=== PATIENT | female | born 1995 | race Caucasian/White ===

== ENCOUNTER 2019-01-15 18:53 | Emergency (ER) | payer MEDICAID ==
[~2019-01-15] VITALS: Ht 162.6 cm; Wt 90.7 kg
[2019-01-15] MEDS ORDERED: MORPHINE SULFATE 4 MG/ML SYR/VIAL ONE (19:53)
[2019-01-15] MEDS ORDERED: ONDANSETRON HCL 4 MG/2 ML VIAL ONE (19:53)
[2019-01-15] MEDS ORDERED: HYDROmorphone HCL 2 MG/ML VL IV ONE (22:00)
[2019-01-15] MEDS ORDERED: ETOMIDATE (2MG/ML) 20ML VIAL IV ONE (22:00)
[2019-01-15] MEDS ORDERED: ONDANSETRON HCL 4 MG/2 ML VIAL IV ONE (22:00)
[2019-01-16 00:30] VITALS: BP 130/70
== END 2019-01-16 01:38 | disposition home or self-care (01) ==
LOC: ER 18:53
DX: S52.222A Displaced transverse fracture of shaft of left ulna, initial encounter for closed fracture (principal); S52.322A Displaced transverse fracture of shaft of left radius, initial encounter for closed fracture; W01.0XXA Fall on same level from slipping, tripping and stumbling without subsequent striking against object, initial encounter; Y93.89 Activity, other specified; Y92.090 Kitchen in other non-institutional residence as the place of occurrence of the external cause; Y99.8 Other external cause status
CPT/HCPCS: 25565; 73090; 73110; 96374; 96375; 99285; J1170; J2270; J2405

== ENCOUNTER 2021-07-10 09:53 | Observation (INO) | payer MEDICAID | END 2021-07-10 11:21 | disposition home or self-care (01) | LOC: LDRP 09:53 | PROVIDERS: ADMIT Obstetrics & Gynecology; ATTEND Obstetrics & Gynecology | DX: O36.8120 Decreased fetal movements, second trimester, not applicable or unspecified (principal); Z3A.20 20 weeks gestation of pregnancy; W01.0XXA Fall on same level from slipping, tripping and stumbling without subsequent striking against object, initial encounter; Y93.89 Activity, other specified; Y92.89 Other specified places as the place of occurrence of the external cause; Y99.8 Other external cause status | CPT/HCPCS: 76815; 81002; 94760; G0378 ==

== ENCOUNTER 2021-11-07 08:09 | Observation (INO) | payer MEDICAID ==
[2021-11-25] MEDS ORDERED: PREN-96 PO (15:08)
== END 2021-11-25 15:54 | disposition home or self-care (01) ==
LOC: LDRP 11-25 14:40 → UNDOADMOB 11-25 14:40 → LDRP 11-25 14:51
PROVIDERS: ADMIT Obstetrics & Gynecology Obstetrics; ATTEND Obstetrics & Gynecology Obstetrics
DX: O48.0 Post-term pregnancy (principal); O62.9 Abnormality of forces of labor, unspecified; Z3A.40 40 weeks gestation of pregnancy
CPT/HCPCS: 59025; 81002; 94760; G0378

== ENCOUNTER 2021-11-19 06:17 | Observation (INO) | payer MEDICAID | END 2021-11-19 07:29 | disposition home or self-care (01) | LOC: LDRP 06:17 | PROVIDERS: ADMIT Obstetrics & Gynecology Obstetrics; ATTEND Obstetrics & Gynecology Obstetrics | DX: O26.893 Other specified pregnancy related conditions, third trimester (principal); R10.9 Unspecified abdominal pain; Z3A.39 39 weeks gestation of pregnancy | CPT/HCPCS: 59025; 81002; 94760; G0378 ==

== ENCOUNTER 2021-11-28 13:00 | Observation (INO) | payer MEDICAID ==
[~2021-11-28 13:00] MED LIST: PREN-96 PO
== END 2021-11-28 14:50 | disposition home or self-care (01) ==
LOC: LDRP 13:00 → UNDOADMOB 13:00 → LDRP 13:06
PROVIDERS: ADMIT Obstetrics & Gynecology; ATTEND Obstetrics & Gynecology
DX: O48.0 Post-term pregnancy (principal); Z3A.40 40 weeks gestation of pregnancy
CPT/HCPCS: 59025; 76818; 81002; 94760; G0378

== ENCOUNTER 2021-12-01 17:40 | Inpatient (IN) | payer MEDICAID ==
[~2021-12-01] VITALS: Ht 162.6 cm; Wt 117.0 kg
[2021-12-01] MEDS ORDERED: miSOPROStol 50 MCG per PRE-CUT 1/2 TAB PO PRN (18:30)
[2021-12-01] MEDS ORDERED: BUTORPHANOL TARTRATE 2 MG/1 ML VIAL IV PRN ×2 (18:30)
[2021-12-01] MEDS ORDERED: PHISODERM TOP SOLN 240ML BTL TOP PRN (18:30)
[2021-12-01] MEDS ORDERED: DERMOPLAST 60ML BOTTLE TOP PRN (18:30)
[2021-12-01] MEDS ORDERED: WITCH HAZEL-GLYCERIN PAD TOP PRN (18:30)
[2021-12-01] MEDS ORDERED: LIDOCAINE 2%HCL (LOCAL ANESTH.) INJ 10ml MDV IJ PRN (18:30)
[2021-12-01] MEDS ORDERED: PROMETHAZINE HCL 25 MG/ML 1ML IV PRN (18:30)
[2021-12-01 18:47] LABS: Basophils # (auto) 0 10 ^3/uL (0-0.2); Basophils % (auto) 0.2 % (0.0-2.0); Eosinophils # (auto) 0 10 ^3/uL (0-0.8); Eosinophils % (auto) 0.2 % (0.0-7.0); Hemoglobin 13.9 g/dL (12.2-16.2); Lymphocytes # (auto) 1.4 10 ^3/uL (0.4-5.4); Lymphocytes % (auto) 14.6 % (10.0-50.0); Mean Corpuscular Hemoglobin 30.1 pg (28.0-32.0); Mean Corpuscular Hgb Conc. 33.2 g/dL (32.0-36.0); Mean Corpuscular Volume 90.8 fL (80.0-100.0); Monocytes # (auto) 0.6 10 ^3/uL (0-1.3); Neutrophils # (auto) 7.3 10 ^3/uL (1.6-8.6); Nucleated Red Blood Cells % 0.1 %; Red Blood Cells 4.63 10^6/uL (4.0-5.20); Red Cell Distribution Width 13.3 % (11.8-14.3); White Blood Cell 9.3 10^3/uL (4.4-10.8)
[2021-12-01 18:56] LABS: Urine Bacteria MANY /hpf (None Seen); Urine Blood Negative /uL (Negative); Urine Mucus FEW (None Seen); Urine Specific Gravity 1.033 (1.001-1.035); Urine WBC 5 /hpf (0 - 5)
[2021-12-01 19:06] LABS: INR 0.93 (0.9-1.15)
[2021-12-01 19:09] LABS: Albumin 2.8 g/dL (3.4-5.0); Calcium 8.7 mg/dL (8.5-10.1); Potassium 4.2 mmol/L (3.5-5.1)
[2021-12-01 19:11] LABS: Alcohol, Urine < 3.0 mg/dL (0-10); Amphetamine Screen, Urine NEGATIVE (NEGATIVE); Barbiturate Scree,Urine NEGATIVE (NEGATIVE); Benzodiazephine Screen, Urine NEGATIVE (NEGATIVE); Cannabinoid Screen, Urine NEGATIVE (NEGATIVE); Cocaine Screen, Urine NEGATIVE (NEGATIVE); Opiate Scree,Urine NEGATIVE (NEGATIVE); Phencyclidine Screen, Urine NEGATIVE (NEGATIVE)
[2021-12-01] MEDS: LACTATED RINGER'S 1,000 ML IV SCH ×2 (19:12→22:17)
[2021-12-01 19:14] LABS: BUN/Creatinine Ratio 19.4; Bilirubin, Total 0.5 mg/dL (0.2-1.0); Total Protein 7.2 g/dL (6.4-8.2)
[2021-12-02] MEDS ORDERED: LACT. RINGERS/OXYTOCIN 20UNITS 500 ML IV ONE ×2 (01:15→01:45)
[2021-12-02] MEDS ORDERED: TERBUTALINE SULFATE 1 MG/ML 1ML VIAL SC PRN (01:15)
[2021-12-02] MEDS ORDERED: LACT. RINGERS/OXYTOCIN 20UNITS 1,000 ML IV SCH (01:15)
[2021-12-02] MEDS ORDERED: LACTATED RINGER'S 1,000 ML IV ONE (05:15)
[2021-12-02] MEDS ORDERED: ePHEDrine SULFATE 50 MG/ML AMP IV ONE (05:15)
[2021-12-02] MEDS ORDERED: fentaNYL CITRATE 100 MCG/2 ML VL IV ONE ×2 (05:15→14:15)
[2021-12-02] MEDS ORDERED: LIDOCAINE HCL 2 %PF INJ 10ML AMP IJ ONE ×2 (05:15→23:02)
[2021-12-02] MEDS ORDERED: ROPIVACAINE HCL 200 ML EPI SCH ×2 (05:15→06:30)
[2021-12-02] MEDS ORDERED: NALOXONE HCL 0.4 MG/ML VIAL IV ONE (05:15)
[2021-12-02] MEDS: LACTATED RINGER'S 1,000 ML IV SCH ×2 (07:17→14:56)
[2021-12-02] MEDS ORDERED: LACTATED RINGER'S 500 ML IV SCH (15:45)
[2021-12-02] MEDS ORDERED: fentaNYL CITRATE 100 MCG/2 ML VL ONE (23:02)
[2021-12-03] MEDS ORDERED: OXYTOCIN 10UNIT/ML 1ML VIAL ONE (02:13)
[2021-12-03] MEDS ORDERED: ONDANSETRON ODT 4 MG TAB PO PRN (02:15)
[2021-12-03] MEDS: ACETAMINOPHEN 325 MG TAB PO PRN ×2 (02:44→16:06)
[2021-12-03 06:07] LABS: RPR Non Reactive (Non Reactive)
[2021-12-03] MEDS: IBUPROFEN 800 MG TAB PO SCH ×4 (06:36→18:00)
[2021-12-03] MEDS ORDERED: DOCU100C10 PO (07:12)
[2021-12-03] MEDS ORDERED: IBUP800T26 PO (07:12)
[2021-12-03 07:23] VITALS: BP 99/77
[2021-12-03 11:00] VITALS: BP 96/70
[2021-12-03 15:30] VITALS: BP 104/65
[2021-12-03 19:00] VITALS: BP 108/56
[2021-12-03] MEDS ORDERED: DOCUSATE SOD 100 MG CAP PO SCH (22:00)
[2021-12-03] MEDS: IBUPROFEN 600 MG TAB PO PRN (22:14)
[2021-12-03 23:00] VITALS: BP 127/53
[2021-12-04 07:00] VITALS: BP 105/71
[2021-12-04] MEDS: IBUPROFEN 600 MG TAB PO PRN ×2 (07:20→14:56)
[2021-12-04 11:00] VITALS: BP 106/58
[2021-12-04 15:00] VITALS: BP 103/58
[2021-12-04 19:00] VITALS: BP 110/69
[2021-12-04] MEDS: ACETAMINOPHEN 325 MG TAB PO PRN (19:40)
== END 2021-12-04 21:20 | disposition home or self-care (01) | DRG 560 ==
LOC: LDRP 17:40 → UNDOADMIN 17:40 → LDRP 18:22
PROVIDERS: ADMIT Obstetrics & Gynecology; ATTEND Obstetrics & Gynecology
PROC: 10E0XZZ Delivery of Products of Conception, External Approach (ICD-10-PCS; principal; 2021-12-03)
PROC: 0KQM0ZZ Repair Perineum Muscle, Open Approach (ICD-10-PCS; 2021-12-03)
PROC: 3E0R3BZ Introduction of Anesthetic Agent into Spinal Canal, Percutaneous Approach (ICD-10-PCS; 2021-12-03)
PROC: 00HU33Z Insertion of Infusion Device into Spinal Canal, Percutaneous Approach (ICD-10-PCS; 2021-12-03)
DX: O48.0 Post-term pregnancy (principal); Z37.0 Single live birth; O70.1 Second degree perineal laceration during delivery; O76 Abnormality in fetal heart rate and rhythm complicating labor and delivery; Z3A.40 40 weeks gestation of pregnancy; Z86.16 Personal history of COVID-19; Z20.822 Contact with and (suspected) exposure to COVID-19
CPT/HCPCS: 36415; 59025; 59409; 80053; 80307; 81001; 81002; 85025; 85610; 85730; 86592; 86850; 86900; 86901; 94760; 94762; 96360; 96361; 96365; 96366; 96374; 96375; G0378; J2590